=== PATIENT | male | born 1965 | race Caucasian/White ===

== ENCOUNTER 2019-07-13 11:11 | Outpatient (CLI) | payer OTHER, SELFPAY ==
--- NOTE | ~2019-07-13 | US_ITS ---
EXAMINATION: US soft tissue head and neck DATE: 07/13/2019 12:14 INDICATION: Neck mass. TECHNIQUE: Multiple grayscale and Doppler ultrasound images of the neck were obtained. COMPARISON: None FINDINGS: In the right neck in the patient's area of concern, there is right internal jugular chain l ymphadenopathy. A high right internal jugular chain node measures 17 x 13 mm. A 2.3 x 3.3 cm mass wit h irregular margin in right neck is likely a noa mass. IMPRESSION: 1. Right cervical lymphadenopathy suspicious for metastatic disease. Neck CT with contrast is recomme nded. Reviewed, dictated and finalized at location A. TESTING TECHNICIAN IMPRESSION: 1. Right cervical lymphadenopathy suspicious for metastatic disease. Neck CT wi th contrast is recommended.
--- NOTE | ~2019-07-13 | CT_ITS ---
EXAMINATION: CT brain wo con EXAM DATE: 07/13/2019 11:50 INDICATION: Posterior headache, chronic, worsening. TECHNIQUE: Spiral CT of the head was performed without contrast. Axial, coronal and sagittal images were reviewed. The dose-length product (DLP) for this examination was 605.33 mGy-cm. The exposure w as tailored according to patient size, and iterative reconstruction (ASIR) was used as additional dos e reduction technique. There is no prior study for comparison. FINDINGS: There is no acute intraparenchymal hemorrhage. No evidence of intraparenchymal brain mass lesion. No evidence of acute infarction. There is no mass effect or midline shift. The ventricles are normal in size. There are no extra-axial collections. There are no acute calvarial fractures. T he orbits are unremarkable. Soft tissue is unremarkable. The visualized sinuses and mastoid air reny ls are well aerated. IMPRESSION: 1. No acute intracranial findings. Reviewed, dictated and finalized at location B. DING DRAFTING OFFICER
== END 2019-07-13 11:12 | disposition home or self-care (01) ==
PROVIDERS: PCP Physician Assistant; Visit Provider Physician Assistant
DX: R22.1 Localized swelling, mass and lump, neck (principal)
CPT/HCPCS: 70450; 76536

== ENCOUNTER 2019-07-23 08:06 | Outpatient (CLI) | payer OTHER, SELFPAY ==
--- NOTE | ~2019-07-23 | CT_ITS ---
EXAMINATION: CT soft tissue neck w con DATE: 07/23/2019 08:46 INDICATION: Right neck lymphadenopathy. TECHNIQUE: Computed tomography (CT) of the neck was performed with 75 mL Omnipaque-350 intravenous co ntrast. Automated exposure control and iterative reconstruction technique were employed. The dose-hernán gth product was 662.08 mGy-cm. COMPARISON: None FINDINGS: There is mild emphysema. There is mild scarring at the lung apices. There is a 4.1 x 3.0 cm noa mass in right high internal jugular chain. 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 There is a 10 mm mass in right palatine tonsil. There is plaque in proximal right internal carotid artery with 0% stenosis relative to normal distal artery lumen diameter. There is to adriana occlusion of left cervical internal carotid artery. There is moderate cervical spondylosis. IMPRESSION: 1. 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 Ultrasound-guided core needle biopsy is recommended. 2. 10 mm mass in right palatine tonsil, which may be primary squamous cell carcinoma. Reviewed, dictated and finalized at location A. NUE AUDIT CLERK IMPRESSION: 1. 4.1 x 3.0 cm no mass in right high internal jugular chain, consistent with m etastatic squamous cell carcinoma, likely with extranodal spread. Ultrasound-gu ided core needle biopsy is recommended. 2. 10 mm mass in right palatine tonsil, which may be primary squamous cell carc inoma.
[2019-07-23 08:35] LABS: Estimated Glomerular Filt Rate 35
== END 2019-07-23 08:07 | disposition home or self-care (01) ==
LOC: ANHIMG 08:10
PROVIDERS: PCP Physician Assistant; Visit Provider Physician Assistant
DX: R59.0 Localized enlarged lymph nodes (principal)
CPT/HCPCS: 36415; 70491; Q9967

== ENCOUNTER 2019-07-30 14:57 | Outpatient (CLI) | payer OTHER, SELFPAY ==
[2019-07-30 15:59] LABS: Basophils Absolute Auto 0.2 K/mm3 (0.0-0.1); Basophils Percent Auto 1.3 % (0.2-1.2); Eosinophils Absolute Auto 0.7 K/mm3 (0-0.3); Eosinophils Percent Auto 4.9 % (0-4.4); Hematocrit 45.3 % (42.0-52.0); Hemoglobin 14.7 g/dL (14.0-18.0); Immature Granulocyte Absolute 0.19 K/mm3 (0.00-0.031); Immature Granulocyte Percent A 1.4 % (0-0.5); Lymphocytes Absolute Auto 3.28 K/mm3 (0.9-3.2); Lymphocytes Percent Auto 23.7 % (18.3-44.2); Mean Corpuscular HGB Conc 32.5 g/dl (32-36); Mean Corpuscular Hemoglobin 28.1 pg (26-34); Mean Corpuscular Volume 86.6 fl (80-100); Mean Platelet Volume 10.9 fl (7.4-10.4); Monocytes Percent Auto 7.4 % (2.6-8.5); Neutrophils Absolute Auto 8.5 K/mm3 (1.3-6.7); Neutrophils Percent Auto 61.3 % (45.5-73.1); Platelet Count Result 237 k/mm3 (150-375); Red Blood Count 5.23 M/mm3 (4.6-6.20); Red Cell Distribution Width 13.3 % (11.5-14.5); White Blood Count 13.8 K/mm3 (4.5-10.0)
[2019-07-30 16:07] LABS: Alanine Aminotransferase 39 U/L (4-50); Albumin Level 4.3 g/dL (3.5-5.1); Alkaline Phosphatase 102 U/L (38-126); Aspartate Amino Transferase 27 U/L (17-59); Bilirubin,Total 0.4 mg/dL (0.2-1.3); Blood Urea Nitrogen 16 mg/dL (9-20); Calcium 10.5 mg/dL (8.4-10.2); Carbon Dioxide 24 mmol/L (22-30); Chloride 103 mmol/L (98-107); Estimated Glomerular Filt Rate > 60; Glucose 91 mg/dL (75-110); Potassium 4.6 mmol/L (3.4-5.0); Sodium 140 mmol/L (137-145)
== END 2019-07-30 14:58 | disposition home or self-care (01) ==
LOC: ANHLAB 14:59
PROVIDERS: PCP Physician Assistant; Visit Provider Internal Medicine Hematology & Oncology
DX: C76.0 Malignant neoplasm of head, face and neck (principal)
CPT/HCPCS: 36415; 80053; 85025

== ENCOUNTER 2019-08-06 10:35 | Outpatient (CLI) | payer OTHER, SELFPAY ==
--- NOTE | ~2019-08-06 | US_ITS ---
EXAMINATION: US biopsy lymph node DATE: 08/06/2019 11:37 INDICATION: Head and neck cancer with right neck mass TECHNIQUE: The procedure including the risks and benefits was discussed with the patient. Risks discu ssed included bleeding and infection. The patient understood the risks and agreed to proceed. The sk in overlying the submandibular right neck was prepped and draped in usual sterile fashion. Anestheti c was administered with 1% lidocaine subcutaneously. An 18 gauge core biopsy needle was advanced und er continuous ultrasound observation to the lesion of interest. 6 core biopsy specimens were obtaine d, 2 placed in formalin and 4 in RPMI media. The needle was removed and the entry site was cleaned a nd dressed. Post procedure ultrasound demonstrated no hemorrhage. FINDINGS: Ultrasound images demonstrate biopsy needle advanced into an approximately 3.5 x 3.4 x 3.2 cm hypoechoic mass with irregular spiculated margins. IMPRESSION: 1. Successful Ultrasound-guided biopsy of an irregular 3.5 cm mass suspicious for malignancy. Reviewed, dictated and finalized at location A. IMPRESSION: 1. Successful Ultrasound-guided biopsy of an irregular 3.5 cm mass suspicious f or malignancy.
== END 2019-08-06 10:36 | disposition home or self-care (01) ==
LOC: ANHIMG 10:39
PROVIDERS: PCP Physician Assistant; Visit Provider Internal Medicine Hematology & Oncology
DX: C44.42 Squamous cell carcinoma of skin of scalp and neck (principal)
CPT/HCPCS: 38505; 76942; 88305; 88307; 88342

== ENCOUNTER 2019-08-10 10:13 | Outpatient (CLI) | payer OTHER, SELFPAY ==
--- NOTE | ~2019-08-10 | CT_ITS ---
EXAMINATION: CT chest abdomen pelvis w con DATE: 08/10/2019 11:06 CDT INDICATION: Head and neck cancer. Recent biopsy. TECHNIQUE: Computed tomography (CT) of the chest, abdomen, and pelvis was performed with 100 cc Omnip aque 350 intravenous contrast. The dose-length product was 1280.45 mGy-cm. Automated exposure control and iterative reconstruction technique were employed. COMPARISON: CT neck dated 07/23/[address] abdomen dated 06/30/2018 FINDINGS: CHEST CT: There is a partially visualized mass in the right high internal jugular chain consistent with known m alignancy. No mediastinal or hilar lymphadenopathy. No axillary lymphadenopathy. No significant pleur al or pericardial effusion. Heart size is normal. There is moderate atherosclerosis of the aorta and coronary arteries. There are emphysematous changes with scarring in the lung apices. There are reticu lonodular densities bilaterally. There is a 7 x 7 mm left upper lobe mass, image 30. No endobronchial lesions. There appears to be thrombosis of the right internal jugular vein. ABDOMEN/PELVIS CT: The liver, spleen, pancreas, adrenal glands are unremarkable. There are nonobstructing bilateral darby l stones. Gallbladder is present. Nonobstructive bowel gas pattern. There are bilateral hip arthropla sties. Colonic diverticulosis without evidence for diverticulitis. Normal appendix. There is an infra renal abdominal aortic aneurysm measuring 3.2 x 3.1 cm. No obstruction. No lymphadenopathy. No free a ir or free fluid. There is scoliosis. IMPRESSION: 1. Slightly visualized mass right high internal jugular lymph node chain, likely corresponding to kno wn malignancy. 2:. 7 x 7 mm irregular shaped left upper lobe mass. This is most likely postinfectious/inflammatory c onsidering adjacent pleural thickening/scarring, although metastatic disease not excluded. 3: Extensive bilateral reticulonodular densities more prevalent in the right lung, most likely infec tious. Metastatic disease is much less favored. 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 5: 3.2 cm infrarenal abdominal aortic aneurysm. 6: Emphysema with bullous changes in the apices. Reviewed, dictated and finalized at location A. IMPRESSION: 1. Slightly visualized mass right high internal jugular lymph node chain, likel y corresponding to known malignancy. 2:. 7 x 7 mm irregular shaped left upper lobe mass. This is most likely postinf ectious/inflammatory considering adjacent pleural thickening/scarring, although metastatic disease not excluded. 3: Extensive bilateral reticulonodular densities more prevalent in the right l melvin, most likely infectious. Metastatic disease is much less favored. 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 5: 3.2 cm infrarenal abdominal aortic aneurysm. 6: Emphysema with bullous changes in the apices.
== END 2019-08-10 10:14 | disposition home or self-care (01) ==
LOC: ANHIMG 10:15
PROVIDERS: PCP Physician Assistant; Visit Provider Internal Medicine Hematology & Oncology
DX: C76.0 Malignant neoplasm of head, face and neck (principal); J43.9 Emphysema, unspecified; I71.4 Abdominal aortic aneurysm, without rupture
CPT/HCPCS: 71260; 74177; Q9967

== ENCOUNTER 2019-08-19 12:06 | Outpatient (CLI) | payer OTHER, SELFPAY ==
--- NOTE | ~2019-08-19 | PE_ITS ---
EXAMINATION: PET skull to mid thigh DATE: 08/19/2019 15:38 INDICATION: Malignant neoplasm of tonsil. TECHNIQUE: Blood glucose level was 152 mg/dL. 10.131 mCi of 18-fluorodeoxyglucose (18-FDG) was admini stered i.v. Low dose computed tomography (CT) images were acquired from the base of the brain to the proximal thighs for attenuation correction and anatomic localization. Automated exposure control was employed. Dose-length product (DLP) was 1039 mGy-cm. Positron emission tomography (PET) images were a cquired in the same distribution. COMPARISON: CT chest, abdomen, and pelvis 08/10/2019, neck CT 07/23/2019 FINDINGS: Head/neck: There is increased activity in the right palatine tonsil, which is larger than the left. T here is increased activity in the lingual tonsil. There is a 4.7 x 2.4 cm doris mass in the right hig h and mid internal jugular chains with maximum SUV of 15.5. There is a 15 x 15 mm mass involving the right strap muscles with maximum SUV of 10.2. Chest: There is mild emphysema. There is mild scarring at the lung apices without increased activity. A calcified nodule at right lung apex is consistent with old granulomatous disease. There is mild at electasis bilaterally. Again seen are innumerable 1-2 mm centrilobular nodules in right lung that are too small for PET evaluation. No pleural effusion. The heart size is normal. There are coronary yoko ry calcifications. No pericardial effusion. Abdomen/pelvis/proximal thighs: The liver, gallbladder, spleen, pancreas, and adrenal glands are norm al. There are two 2 mm stones in right kidney. There is a 2 mm stone in left kidney. There are bilate ral inguinal hernias containing fat. There is diverticulosis of the colon without evidence of diverti culitis. There are no dilated loops of bowel. The appendix is normal. There is a 3.4 cm fusiform infr arenal aortic aneurysm. There are no pathologically enlarged lymph nodes. There is no free intraperit hernandez fluid. There are bilateral total hip arthroplasties. IMPRESSION: 1. Doris mass with increased activity involving right high and mid internal jugular chains, consisten t with metastatic disease. 2. Mass with increased activity involving the right neck strap muscles, consistent with metastatic di sease. 3. Asymmetric enlargement and increased activity in the right palatine tonsil, which may be the prima ry malignancy. Reviewed, dictated and finalized at location A. IMPRESSION: 1. Doris mass with increased activity involving right high and mid internal jug ular chains, consistent with metastatic disease. 2. Mass with increased activity involving the right neck strap muscles, consist ent with metastatic disease. 3. Asymmetric enlargement and increased activity in the right palatine tonsil, which may be the primary malignancy.
[2019-08-19 12:29] LABS: Glucose Point of Care 152 (65-105)
== END 2019-08-19 12:07 | disposition home or self-care (01) ==
PROVIDERS: PCP Physician Assistant; Visit Provider Otolaryngology
DX: C09.9 Malignant neoplasm of tonsil, unspecified (principal)
CPT/HCPCS: 78815; A9552

== ENCOUNTER 2019-09-24 09:11 | Outpatient (RCR) | payer OTHER, SELFPAY ==
[2019-09-24 09:21] LABS: Basophils Absolute Auto 0.1 K/mm3 (0.0-0.1); Basophils Percent Auto 0.9 % (0.2-1.2); Eosinophils Absolute Auto 0.4 K/mm3 (0-0.3); Eosinophils Percent Auto 4.2 % (0-4.4); Hematocrit 41.9 % (42.0-52.0); Hemoglobin 13.4 g/dL (14.0-18.0); Immature Granulocyte Absolute 0.07 K/mm3 (0.00-0.031); Immature Granulocyte Percent A 0.7 % (0-0.5); Lymphocytes Absolute Auto 1.16 K/mm3 (0.9-3.2); Lymphocytes Percent Auto 11.7 % (18.3-44.2); Mean Corpuscular Hemoglobin 28.5 pg (26-34); Mean Corpuscular Volume 89.1 fl (80-100); Mean Platelet Volume 9.5 fl (7.4-10.4); Monocytes Absolute Auto 0.7 K/mm3 (0.1-0.6); Monocytes Percent Auto 7.1 % (2.6-8.5); Neutrophils Absolute Auto 7.5 K/mm3 (1.3-6.7); Neutrophils Percent Auto 75.4 % (45.5-73.1); Nucleated Red Blood Cells Perc 0.2 % (0.0-0.2); Platelet Count Result 262 k/mm3 (150-375); White Blood Count 9.9 K/mm3 (4.5-10.0)
[2019-09-24 09:24] LABS: Blood Urea Nitrogen 32 mg/dL (8-26); Carbon Dioxide 31 mmol/L (22-30); Chloride 97 mmol/L (98-109); Estimated CRCL calculation 88 ml/min; Estimated Glomerular Filt Rate > 60; Glucose 180 mg/dL (70-105); Potassium 4.1 mmol/L (3.5-4.9); Sodium 137 mmol/L (138-146)
[2019-09-24 10:08] VITALS: BP 91/49; PULSE 95; RESP 18; TEMP 36.2; O2SAT 91
[2019-09-24 12:18] VITALS: BP 99/50
[2019-09-24] MEDS: FOSAPREPITANT DIMEGLUMINE 150 MG in SODIUM CHLORIDE 0.9% IV 150 ML 300 MG IVPB (12:23)
[2019-09-24 14:26] LABS: Alanine Aminotransferase 21 U/L (4-50); Albumin Level 4.3 g/dL (3.5-5.1); Alkaline Phosphatase 113 U/L (38-126); Aspartate Amino Transferase 18 U/L (17-59); Bilirubin,Total 0.4 mg/dL (0.2-1.3); Blood Urea Nitrogen 33 mg/dL (9-20); Calcium 9.8 mg/dL (8.4-10.2); Carbon Dioxide 31 mmol/L (22-30); Chloride 96 mmol/L (98-107); Estimated CRCL calculation 84 ml/min; Estimated Glomerular Filt Rate > 60; Glucose 172 mg/dL (75-110); Potassium 4.5 mmol/L (3.4-5.0); Sodium 136 mmol/L (137-145)
[2019-09-24 14:30] VITALS: BP 118/53; PULSE 95; RESP 16; O2SAT 91
[2019-09-24] MEDS: PALONOSETRON HCL 0.25 MG/5 ML VIAL IV PUSH (14:38)
[2019-09-24] MEDS: SODIUM CHLORIDE 0.9% IV 500 ML IVPB (14:47)
[2019-09-24 15:50] VITALS: BP 118/57; PULSE 86; RESP 16; O2SAT 88
[2019-09-24] MEDS: methylPREDNISolone SOD SUCC 125 MG VIAL IV PUSH (16:03)
== END 2019-09-27 13:25 ==
LOC: AMCINF 09:11
PROVIDERS: Visit Provider Internal Medicine Hematology & Oncology
DX: Z51.11 Encounter for antineoplastic chemotherapy (principal); C76.0 Malignant neoplasm of head, face and neck; I10 Essential (primary) hypertension; J45.909 Unspecified asthma, uncomplicated; E78.5 Hyperlipidemia, unspecified; E11.9 Type 2 diabetes mellitus without complications; E66.01 Morbid (severe) obesity due to excess calories; F17.210 Nicotine dependence, cigarettes, uncomplicated; F17.220 Nicotine dependence, chewing tobacco, uncomplicated
CPT/HCPCS: 36415; 80048; 80053; 83735; 85025; 96366; 96367; 96368; 96375; 96413; 96415; J1100; J1453; J2469; J2930; J3475; J3480; J7030; J7040; J9060